=== PATIENT | female | born 1980 | race Caucasian/White ===

== ENCOUNTER 2021-06-25 10:04 | Emergency (ER) | payer OTHER ==
[~2021-06-25] VITALS: Ht 167.6 cm; Wt 115.7 kg
[2021-06-25 10:07] VITALS: BP 158/107
[2021-06-25] MEDS ORDERED: NAPROSYN500 MG PO (10:47)
[2021-06-25] MEDS ORDERED: AUGMENTIN 875-1 EACH PO (10:47)
== END 2021-06-25 10:50 | disposition home or self-care (01) ==
LOC: ER 10:04
DX: J32.9 Chronic sinusitis, unspecified (principal); F17.210 Nicotine dependence, cigarettes, uncomplicated